=== PATIENT | female | born 1950 ===

== ENCOUNTER → 2018-03-04 | Outpatient (REF) | LOC: ZLAB.WCH 15:53 | DX: Z01.89 Encounter for other specified special examinations (principal) ==

== ENCOUNTER → 2018-08-15 | Outpatient (REF) ==
[2018-08-15 19:03] LABS: THYROID STIMULATING HORMONE 1.22 uIU/mL (0.465-4.680)
== END ==
LOC: ZLAB.WCH 18:19
PROVIDERS: Family Medicine
DX: Z01.89 Encounter for other specified special examinations (principal)